=== PATIENT | female | born 1975 | race Caucasian/White ===

== ENCOUNTER 2017-04-30 19:31 | Emergency (ER) | payer MEDICAID, OTHER ==
--- NOTE | 2017-04-30 19:47 | ED Physician Documentation ---
History of Present Illness - Stated complaint Stated Complaint: L LEG PAIN - Chief complaint Chief Complaint: General - History obtained from History obtained from: Patient - History of Present Illness Timing: Other (This is a 41-year-old woman who about 18 years ago had an unexplained stroke. She says she did have a normal echocardiogram with after that. She has a strong family history for DVT with multiple female relatives having had DVTs. The last 3 weeks without recent travel or trauma she has had an occasional cramp in the left leg and since yesterday she feels like she is breathing underwater with which is worse with exertion.) Review of Systems Ten Systems: 10 systems reviewed and negative Constitutional: denies: Fever, Chills Nose: denies: Rhinorrhea / runny nose, Congestion Cardiac: reports: Pedal edema, Calf pain. denies: Chest pain / pressure, Palpitations Respiratory: reports: Dyspnea. 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, Tubal ligation - Allergies Allergies/Adverse Reactions: Allergies Allergy/AdvReac Type Severity Reaction Status Date / Time morphine Allergy Edema Verified 04/30/17 19:37 - Social History Does the pt smoke?: No Does the pt drink ETOH?: No Does the pt have substance abuse?: No - Family History Family history: reports: Other (Multiple female family members with DVT) PD ED PE NORMAL - Vitals Vital signs reviewed: Yes - General General: Alert and oriented X 3, No acute distress - HEENT HEENT: PERRL, EOMI - Neck Neck: Supple, no meningeal sign, No bony TTP - Cardiac Cardiac: RRR, No murmur - Respiratory Respiratory: No respiratory distress, Clear bilaterally - Abdomen Abdomen: Soft, Non tender - Back Back: No CVA TTP, No spinal TTP - Derm Derm: Normal color, Warm and dry - Extremities Extremities: No edema, No calf tenderness / cord - Neuro Neuro: Alert and oriented X 3, Normal speech - Psych Psych: Normal mood, Normal affect Results - Vitals Vitals: Vital Signs - 24 hr 04/30/17 04/30/17 19:34 19:56 Temperature 36.5 C Heart Rate 82 77 Respiratory 18 Rate Blood Pressure 148/89 H O2 Saturation 100 Oxygen O2 Source Room air - Labs Labs: Laboratory Tests 04/30/17 04/30/17 04/30/17 19:59 19:59 19:59 WBC 7.6 RBC 4.49 Hgb 14.6 Hct 43.8 MCV 97.5 MCH 32.6 H MCHC 33.4 RDW 12.3 Plt Count 323 MPV 7.8 L Neut # 4.3 Lymph # 2.5 [place] # 0.4 Eos # 0.3 Baso # 0.1 Absolute Nucleated RBC 0.00 Nucleated RBCs 0.0 PT 11.3 INR 1.0 Sodium 140 Potassium 4.0 Chloride 104 Carbon Dioxide 27 Anion Gap 9.0 BUN 18 Creatinine 0.9 Estimated GFR (MDRD) 68 L Glucose 151 H Calcium 9.6 Total Bilirubin 0.3 AST 18 ALT 21 Alkaline Phosphatase 71 Total Protein 7.2 Albumin 4.6 Globulin 2.6 Albumin/Globulin Ratio 1.8 Lipase 29 PD MEDICAL DECISION MAKING - ED course ED course: 41-year-old woman with strong family history of DVT presents with 3 weeks of left leg pain and now a days worth of shortness of breath, despite Normal vital signs and normal examination this history is concerning for DVT/PE, however both CT angiogram of the chest and lower extremity Doppler were negative. Departure - Departure Disposition: 01 Home, Self Care Clinical Impression: Leg pain, left Dyspnea Qualifiers: Dyspnea type: shortness of breath Qualified Code(s): R06.02 - Shortness of breath Condition: Good Record reviewed to determine appropriate education?: Yes Instructions: ED Muscle Pain Leg Cramps, ED Dyspnea Shortness of Breath Comments: Call your doctor to arrange a follow-up appointment, make the next available appointment. In the interim, return anytime if worse or if new symptoms develop. Your blood pressure was elevated today on check into the emergency department. This does not mean that you have hypertension, it is a common phenomenon to come to the emergency department and have elevated blood pressure. I recommend that she see your primary care physician within the week to have it rechecked when you are feeling better.
[2017-04-30 20:06] LABS: BASOPHILS # (AUTO) 0.1 10^3/uL (0.0-0.1); BASOPHILS % (AUTO) 0.9 %; EOSINOPHILS # (AUTO) 0.3 10^3/uL (0.0-0.7); EOSINOPHILS % (AUTO) 3.9 %; HCT - HEMATOCRIT 43.8 % (37.0-47.0); HGB - HEMOGLOBIN 14.6 g/dL (12.0-16.0); LYMPHOCYTES # (AUTO) 2.5 10^3/uL (1.5-3.5); LYMPHOCYTES % (AUTO) 32.8 %; MEAN CORPUSCULAR HEMOGLOBIN 32.6 pg (27.0-31.0); MEAN CORPUSCULAR HGB CONC 33.4 g/dL (32.0-36.0); MEAN CORPUSCULAR VOLUME 97.5 fL (81.0-99.0); MEAN PLATELET VOLUME 7.8 fL (7.9-10.8); MONOCYTES # (AUTO) 0.4 10^3/uL (0.0-1.0); MONOCYTES % (AUTO) 5.2 %; NEUTROPHILS # (AUTO) 4.3 10^3/uL (1.5-6.6); NEUTROPHILS % (AUTO) 57.2 %; RED BLOOD COUNT 4.49 10^6/uL (4.20-5.40); RED CELL DISTRIBUTION WIDTH 12.3 % (12.0-15.0); UNCORRECTED WHITE BLOOD COUNT 7.6 x10^3/uL; WHITE BLOOD COUNT 7.6 x10^3/uL (4.8-10.8)
[2017-04-30 20:19] LABS: ALBUMIN/GLOBULIN RATIO 1.8 (1.0-2.2); BILIRUBIN,TOTAL 0.3 mg/dL (0.2-1.0); CALCIUM 9.6 mg/dL (8.5-10.3); CREATININE 0.9 mg/dL (0.4-1.0); TOTAL PROTEIN 7.2 g/dL (6.7-8.2)
--- NOTE | 2017-04-30 21:02 | Ultrasound Preliminary Report ---
Exam: US Duplex Ext Veins Left IMPRESSION: Negative for deep venous thrombosis in the left lower extremity [facility] SITE ID: [id number]
--- NOTE | 2017-04-30 21:05 | Ultrasound Report ---
EXAM: LEFT LOWER EXTREMITY VENOUS ULTRASOUND EXAM DATE: 04/30/2017 08:35 PM. CLINICAL HISTORY: Dyspnea, leg pain. COMPARISON: None. TECHNIQUE: Real-time sonographic vascular imaging was performed by the door repairer bus through the lower extremity utilizing both color-flow and Doppler spectral analysis. Multiple cordage sales representative static stephen ges were saved for review. FINDINGS: Common Femoral Vein (CFV): Normal. CFV-GSV Junction: Normal. Profunda Femoral Vein (PFV): Normal. Femoral Vein (FV) Prox: Normal. Femoral Vein (FV) Mid: Normal. Femoral Vein (FV) Dist: Normal. Popliteal Vein: Normal. Posterior Tibial Veins: Normal. Peroneal Veins: Normal. Other: None. IMPRESSION: Negative for deep venous thrombosis in the left lower extremity [facility] Referring Provider Line: [phone] SITE ID: [id number]
[2017-04-30] MEDS ORDERED: IOPAMIDOL-300 100 ML VIAL IVP ONE (21:12)
[2017-04-30 21:17] LABS: PT - PROTHROMBIN TIME 11.3 secs (9.9-12.6)
--- NOTE | 2017-04-30 21:33 | CT Preliminary Report ---
Exam: CT Chest Angio (PE) IMPRESSION: Negative CT angiogram. No pulmonary embolism or aortic dissection. Clear lungs. [facility] SITE ID: [id number]
--- NOTE | 2017-04-30 21:36 | CT Report ---
EXAM: CT ANGIOGRAM CHEST EXAM DATE: 04/30/2017 09:08 PM. CLINICAL HISTORY: Dyspnea, leg pain. COMPARISON: None. TECHNIQUE: Routine helical imaging was performed through the chest in the pulmonary arterial phase. I V Contrast: 80 cc Isovue 300 IV. Reconstructions: Coronal 3-D MIP reconstructions.Sagittal and elizondo l. In accordance with CT protocol optimization, one or more of the following dose reduction techniques w ere utilized for this exam: automated exposure control, adjustment of mA and/or KV based on patient s ize, or use of iterative reconstructive technique. FINDINGS: Pulmonary Arteries: Diagnostic quality: Adequate through the segmental arteries. No evidence for acute or chronic pulmona ry emboli. Main pulmonary artery is normal in size. Lungs/Pleura: No consolidation, nodules, or edema. No effusions or pneumothorax. Mediastinum: Normal. No cardiac enlargement or adenopathy. Thoracic Aorta: No aneurysm or dissection of the thoracic aorta. Upper Abdomen: Unremarkable. Other: None. IMPRESSION: Negative CT angiogram. No pulmonary embolism or aortic dissection. Clear lungs. [facility] Referring Provider Line: [phone] SITE ID: [id number]
[2017-04-30 21:42] VITALS: BP 139/71
== END 2017-04-30 21:43 | disposition home or self-care (01) ==
LOC: ED 19:31
DX: M79.605 Pain in left leg (principal); R06.02 Shortness of breath; Z86.73 Personal history of transient ischemic attack (TIA), and cerebral infarction without residual deficits; Z84.89 Family history of other specified conditions
CPT/HCPCS: 36415; 71275; 80053; 83690; 85025; 85610; 93971; 99283; 99284; Q9967

== ENCOUNTER 2017-12-26 12:56 | Outpatient (CLI) | payer OTHER ==
--- NOTE | 2017-12-27 14:09 | Mammography Report ---
SCREENING MAMMOGRAM: 12/26/2017 CLINICAL INDICATION: A 42-year-old with family history of breast cancer, for screening. COMPARISON: 06/17/2017 TECHNIQUE: Routine CC and MLO projections were obtained of the breasts. FINDINGS: Parenchymal tissue within both breasts is heterogeneously dense, which may lower the sensitivity of mammography; however, there are no dominant masses, suspicious microcalcifications, or secondary signs of malignancy. In comparison to the previous studies, there are no significant changes. ASSESSMENT: NO MAMMOGRAPHIC EVIDENCE OF MALIGNANCY. NO SIGNIFICANT INTERVAL CHANGES. RECOMMENDATION: Screening mammography is recommended annually. BIRADS category 1 - negative. STANDARD QUALIFYING STATEMENTS: 1. This examination was reviewed with the aid of Computed-Aided Detection (CAD). 2. A negative or benign imaging report should not delay biopsy if clinically suspicious findings are present. Consider surgical consultation if warranted. More than 5% of cancers are not identified by imaging. 3. Dense breasts may obscure an underlying neoplasm. TD: 12/27/2017 14:08
== END 2017-12-26 12:57 | disposition home or self-care (01) ==
LOC: DI 12:56
PROVIDERS: ATTEND Nurse Practitioner
DX: Z12.31 Encounter for screening mammogram for malignant neoplasm of breast (principal); Z80.3 Family history of malignant neoplasm of breast
CPT/HCPCS: 77067

== ENCOUNTER 2018-01-07 12:40 | Emergency (ER) | payer OTHER ==
--- NOTE | 2018-01-07 13:52 | ED Physician Documentation ---
PD HPI ABD PAIN - Stated complaint Stated Complaint: ABD PX,DIARRHEA - Chief complaint Chief Complaint: Abd Pain - History obtained from History obtained from: Patient - History of Present Illness Timing - onset: How many months ago (1 month of waxing and waning diarrhea and lower abd cramping pain.) Timing - duration: Months (1) Timing - details: Gradual onset, Still present, Waxing and waning Quality: Cramping, Aching, Pain Location: RLQ, Suprapubic, LLQ Radiation: Lower back Improved by: No: Eating, BM Worsened by: No: Eating Associated symptoms: Nausea, Diarrhea. No: Fever, Constipation, Melena, Hematochezia, Dysuria Similar symptoms before: Has not had sx before Recently seen: Not recently seen (no recent travel, abx, unusual foods.) Review of Systems Constitutional: denies: Fever, Chills, Myalgias Nose: denies: Rhinorrhea / runny nose, Congestion Throat: denies: Sore throat Respiratory: denies: Cough GI: reports: Abdominal Pain, Nausea, Vomiting, Diarrhea. denies: Abdominal Swelling, Constipation, Hematemesis, Bloody / black stool : denies: Dysuria, Frequency Skin: denies: Rash Neurologic: reports: Generalized weakness. 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: Endometrial ablation, Tubal ligation - Present Medications Home Medications: Ambulatory Orders Medication Instructions Recorded Confirmed Acetaminophen [Tylenol] 01/07/18 Cyclosporine [Restasis] 01/07/18 Gabapentin [Neurontin] 01/07/18 HYDROcod/ACETAM 5/325 [[place] 5/325] 1 tab PO Q6H PRN #15 tablet 01/07/18 Ibuprofen 01/07/18 Metoprolol Tartrate 01/07/18 Metronidazole [Flagyl] 500 mg PO BID #14 tablet 01/07/18 Ondansetron HCl [Zofran] 4 mg PO Q6H PRN #20 tablet 01/07/18 Pantoprazole [Protonix] 01/07/18 Sulfamethox/Trimeth 800/160 1 each PO BID #14 tablet 01/07/18 [Bactrim Ds 800/160] lamoTRIgine [Lamictal] 01/07/18 traZODone [Desyrel] 01/07/18 01/07/18 - Allergies Allergies/Adverse Reactions: Allergies Allergy/AdvReac Type Severity Reaction Status Date / Time morphine Allergy Edema Verified 01/07/18 12:56 - Social History Does the pt smoke?: No Does the pt drink ETOH?: No Does the pt have substance abuse?: No - Immunizations Immunizations are current?: Yes PD ED PE NORMAL - Vitals Vital signs reviewed: Yes - General General: Alert and oriented X 3, Well developed/nourished, Other (appears uncomfortable) - HEENT HEENT: PERRL (nonicteric), Pharynx benign - Neck Neck: Supple, no meningeal sign, No adenopathy - Cardiac Cardiac: RRR, No murmur - Respiratory Respiratory: Clear bilaterally - Abdomen Abdomen: Normal bowel sounds, Soft, Non distended, No organomegaly, Other ( tender lower abd generally without guarding nor percussion tenderness. ) - Female Female : Deferred - Rectal Rectal: Deferred - Back Back: No CVA TTP - Derm Derm: Normal color, Warm and dry - Neuro Neuro: Alert and oriented X 3, No motor deficit, Normal speech Results - Vitals Vitals: Oxygen O2 Source Room air - Labs Labs: Microbiology 01/07/18 16:30 Campylobacter Antigen Assay - Final Stool Stool Culture - Preliminary NO SHIGA TOXIN 1 OR 2 DETECTED 01/07/18 16:30 Clostridium difficile (PCR) - Final Stool Laboratory Tests 01/07/18 01/07/18 01/07/18 13:45 13:45 13:45 WBC 11.4 H RBC 4.19 L Hgb 12.9 Hct 39.7 MCV 94.9 MCH 30.8 MCHC 32.4 RDW 12.8 Plt Count 346 MPV 7.9 Neut # 8.7 H Lymph # 1.7 [place] # 0.6 Eos # 0.3 Baso # 0.1 Absolute Nucleated RBC 0.01 Nucleated RBC % 0.1 ESR 15 Sodium 136 Potassium 3.3 L Chloride 103 Carbon Dioxide 25 Anion Gap 8.0 BUN 7 Creatinine 0.8 Estimated GFR (MDRD) 78 L Glucose 99 Calcium 8.9 Magnesium 1.8 Total Bilirubin 0.5 AST 12 ALT 13 Alkaline Phosphatase 66 Total Protein 6.4 L Albumin 3.6 Globulin 2.8 Albumin/Globulin Ratio 1.3 Lipase 15 L Urine Color Urine Clarity Urine pH Ur Specific [place] Urine Protein Urine Glucose (UA) Urine Ketones Urine Occult Blood Urine Nitrite Urine Bilirubin Urine Urobilinogen Ur Leukocyte Esterase Ur Microscopic Review 01/07/18 14:30 WBC RBC Hgb Hct MCV MCH MCHC RDW Plt Count MPV Neut # Lymph # [place] # Eos # Baso # Absolute Nucleated RBC Nucleated RBC % ESR Sodium Potassium Chloride Carbon Dioxide Anion Gap BUN Creatinine Estimated GFR (MDRD) Glucose Calcium Magnesium Total Bilirubin AST ALT Alkaline Phosphatase Total Protein Albumin Globulin Albumin/Globulin Ratio Lipase Urine Color YELLOW Urine Clarity CLEAR Urine pH 6.0 Ur Specific [place] 1.015 Urine Protein NEGATIVE Urine Glucose (UA) NEGATIVE Urine Ketones NEGATIVE Urine Occult Blood NEGATIVE Urine Nitrite NEGATIVE Urine Bilirubin NEGATIVE Urine Urobilinogen 0.2 (NORMAL) Ur Leukocyte Esterase NEGATIVE Ur Microscopic Review NOT INDICATED - Rads (name of study) abd CT Radiology: Prelim report reviewed (cecum and ascending colon with wall inflammation c/w focal colitis. ) PD MEDICAL DECISION MAKING - ED course Complexity details: reviewed results, re-evaluated patient, considered differential (viral GE, bacterial infection, colitis, diverticulitis would all fit for this. Prior appy. will check CBC and ESR for consideration crohns or UC. ), d/w patient Departure - Departure Disposition: 01 Home, Self Care Clinical Impression: Colitis Diarrhea Qualifiers: Diarrhea type: unspecified type Qualified Code(s): R19.7 - Diarrhea, unspecified Condition: Stable Instructions: ED Diet Vomiting Diarrhea Prescriptions: HYDROcod/ACETAM 5/325 [[place] 5/325] 1 tab PO Q6H PRN #15 tablet PRN Reason: Pain Metronidazole [Flagyl] 500 mg PO BID #14 tablet Ondansetron HCl [Zofran] 4 mg PO Q6H PRN #20 tablet PRN Reason: Nausea / Vomiting Sulfamethox/Trimeth 800/160 [Bactrim Ds 800/160] 1 each PO BID #14 tablet Comments: Your CT scan does show a local area of colitis which is more likely a bacterial infection in the site. We will treated with Bactrim and Flagyl antibiotics twice daily for a week. He can use ondansetron if needed for nausea. Drink lots of fluids. Use Tylenol or hydrocodone if needed for pain. Recheck if not improving over the next few days. Follow-up with your primary care in the next 3-5 days, call for an appointment. Discharge Date/Time: 01/07/18 17:24
[2018-01-07] MEDS ORDERED: SODIUM CHLORIDE 0.9% 1,000 ML IV ONE (14:27)
[2018-01-07] MEDS ORDERED: ONDANSETRON 4 MG/2 ML VIAL IVP STA (14:27)
[2018-01-07] MEDS ORDERED: KETOROLAC 60 MG/2 ML VIAL IVP STA (14:27)
[2018-01-07 14:38] LABS: BASOPHILS # (AUTO) 0.1 10^3/uL (0.0-0.1); BASOPHILS % (AUTO) 0.7 %; EOSINOPHILS # (AUTO) 0.3 10^3/uL (0.0-0.7); HGB - HEMOGLOBIN 12.9 g/dL (12.0-16.0); LYMPHOCYTES # (AUTO) 1.7 10^3/uL (1.5-3.5); LYMPHOCYTES % (AUTO) 14.5 %; MEAN CORPUSCULAR HEMOGLOBIN 30.8 pg (27.0-31.0); MEAN CORPUSCULAR HGB CONC 32.4 g/dL (32.0-36.0); MEAN CORPUSCULAR VOLUME 94.9 fL (81.0-99.0); MEAN PLATELET VOLUME 7.9 fL (7.9-10.8); MONOCYTES # (AUTO) 0.6 10^3/uL (0.0-1.0); MONOCYTES % (AUTO) 5.2 %; NEUTROPHILS # (AUTO) 8.7 10^3/uL (1.5-6.6); NEUTROPHILS % (AUTO) 76.6 %; PLT - PLATELET COUNT 346 10^3/uL (130-450); RED BLOOD COUNT 4.19 10^6/uL (4.20-5.40); RED CELL DISTRIBUTION WIDTH 12.8 % (12.0-15.0); WHITE BLOOD COUNT 11.4 x10^3/uL (4.8-10.8)
[2018-01-07] MEDS ORDERED: IOPAMIDOL-300 100 ML VIAL ONE (14:48)
[2018-01-07 14:49] LABS: ALBUMIN 3.6 g/dL (3.2-5.5); ALBUMIN/GLOBULIN RATIO 1.3 (1.0-2.2); BILIRUBIN,TOTAL 0.5 mg/dL (0.2-1.0); CALCIUM 8.9 mg/dL (8.5-10.3); CREATININE 0.8 mg/dL (0.4-1.0); MAGNESIUM 1.8 mg/dL (1.7-2.8); TOTAL PROTEIN 6.4 g/dL (6.7-8.2)
--- NOTE | 2018-01-07 15:42 | CT Report ---
EXAM: CT ABDOMEN AND PELVIS EXAM DATE: 01/07/2018 03:30 PM. CLINICAL HISTORY: Lower abd pain and diarrhea for few weeks. COMPARISONS: None. TECHNIQUE: Routine helical CT imaging was performed through the abdomen and pelvis. IV contrast: 100M L ISOVUE 300. Enteric contrast: No. Reconstructions: Coronal and sagittal. In accordance with CT protocol optimization, one or more of the following dose reduction techniques w ere utilized for this exam: automated exposure control, adjustment of mA and/or KV based on patient s ize, or use of iterative reconstructive technique. FINDINGS: Lung Bases: Unremarkable. Liver: Normal. No masses. Gallbladder/Bile Ducts: Unremarkable. Spleen: Normal. Pancreas: Normal. Adrenal Glands: Normal. Kidneys: Normal. No masses or hydronephrosis. Peritoneal Cavity/Bowel: There is diffuse thickening of the wall of the cecum and ascending colon. Th ere is a nonobstructive bowel gas pattern. The appendix is not seen. Pelvic Organs: There is a small volume of free fluid within the posterior cul-de-sac. There is mild l inear enhancement along the periphery of the free fluid. The uterus is normal in size. The urinary bl adder is unremarkable. The ovaries are not well seen. Vasculature: Abdominal aorta is normal in caliber. Bones: No significant abnormality. Other: None. IMPRESSION: 1. Wall thickening of the cecum and ascending colon consistent with acute colitis. 2. Small volume of mildly complex free fluid in the posterior cul-de-sac of the pelvis with mild marsha pheral rim enhancement may reflect inflammatory fluid 3. No bowel obstruction. 4. Appendix not seen. [facility] Referring Provider Line: [phone] SITE ID: [id number]
[2018-01-07 16:07] LABS: BILIRUBIN,URINE NEGATIVE (NEGATIVE); GLUCOSE, URINE (UA) NEGATIVE (NEGATIVE); KETONES,URINE (UA) NEGATIVE (NEGATIVE); LEUKOCYTE ESTERASE, URINE NEGATIVE (NEGATIVE); NITRITE,URINE NEGATIVE (NEGATIVE); OCCULT BLOOD,URINE NEGATIVE (NEGATIVE); PROTEIN,URINE NEGATIVE (NEGATIVE); UROBILINOGEN,URINE 0.2 (NORMAL) E.U./dL (NORMAL)
[2018-01-07] MEDS ORDERED: IOPAMIDOL-300 100 ML VIAL IVP ONE (16:08)
[2018-01-07 16:17] LABS: CLARITY,URINE CLEAR (CLEAR)
[2018-01-07] MEDS ORDERED: metroNIDAZOLE 250 MG TABLET PO STA (16:41)
[2018-01-07] MEDS ORDERED: SULFAMETH/TRIMETH DS 800/160 MG TABLET PO STA (16:41)
[2018-01-07 17:06] VITALS: BP 112/76
== END 2018-01-07 17:24 | disposition home or self-care (01) ==
LOC: ED 12:40
DX: K52.9 Noninfective gastroenteritis and colitis, unspecified (principal); I10 Essential (primary) hypertension
CPT/HCPCS: 36415; 74177; 80053; 81003; 83690; 83735; 85025; 85651; 87045; 87046; 87493; 96361; 96374; 96375; 99283; 99284; A9270; Q9967; 81001; 87077

== ENCOUNTER 2019-02-08 11:19 | Emergency (ER) | payer OTHER ==
[2019-02-08 11:30] VITALS: BP 109/80
[2019-02-08 11:59] LABS: BASOPHILS # (AUTO) 0.1 10^3/uL (0.0-0.1); BASOPHILS % (AUTO) 0.8 %; EOSINOPHILS # (AUTO) 0.4 10^3/uL (0.0-0.7); EOSINOPHILS % (AUTO) 4.1 %; HGB - HEMOGLOBIN 13.6 g/dL (12.0-16.0); LYMPHOCYTES # (AUTO) 1.4 10^3/uL (1.5-3.5); LYMPHOCYTES % (AUTO) 13.7 %; MEAN CORPUSCULAR HEMOGLOBIN 32.3 pg (27.0-31.0); MEAN CORPUSCULAR HGB CONC 33.3 g/dL (32.0-36.0); MEAN CORPUSCULAR VOLUME 96.9 fL (81.0-99.0); MEAN PLATELET VOLUME 7.5 fL (7.9-10.8); MONOCYTES # (AUTO) 0.6 10^3/uL (0.0-1.0); MONOCYTES % (AUTO) 5.7 %; NEUTROPHILS # (AUTO) 7.9 10^3/uL (1.5-6.6); NEUTROPHILS % (AUTO) 75.7 %; PLT - PLATELET COUNT 318 10^3/uL (130-450); RED CELL DISTRIBUTION WIDTH 12.5 % (12.0-15.0); WHITE BLOOD COUNT 10.5 x10^3/uL (4.8-10.8)
[2019-02-08 12:12] LABS: ALBUMIN 4.1 g/dL (3.2-5.5); ALBUMIN/GLOBULIN RATIO 1.3 (1.0-2.2); BILIRUBIN,TOTAL 0.6 mg/dL (0.2-1.0); CALCIUM 9.4 mg/dL (8.5-10.3); CREATININE 0.8 mg/dL (0.4-1.0); TOTAL PROTEIN 7.3 g/dL (6.7-8.2)
--- NOTE | 2019-02-08 12:53 | XRAY Report ---
Reason: cough Procedure Date: 02/08/2019 Accession Number: [id number] / [id number] Procedure: XR - Chest 2 View X-Ray CPT Code: 62687 FULL RESULT: EXAM: CHEST RADIOGRAPHY EXAM DATE: 02/08/2019 12:19 PM. CLINICAL HISTORY: Cough. COMPARISON: None. TECHNIQUE: 2 views. FINDINGS: Lungs/Pleura: No focal opacities evident. No pleural effusion. No pneumothorax. Normal volumes. Mediastinum: Heart and mediastinal contours are unremarkable. Other: None. IMPRESSION: Normal 2-view chest radiography. [facility]
[2019-02-08] MEDS ORDERED: IPRATROPIUM/ALBUTEROL 3 ML NEB INH STA (13:39)
[2019-02-08] MEDS ORDERED: DEXAMETHASONE 10 MG/ML VIAL PO STA (13:39)
[2019-02-08] MEDS ORDERED: CHERRY SYRUP 10 ML UDC PO ONE (13:39)
--- NOTE | 2019-02-08 13:40 | ED Physician Documentation ---
PD HPI URI - Stated complaint Stated Complaint: SOA/DIZZY - Chief complaint Chief Complaint: Resp - History obtained from History obtained from: Patient - History of Present Illness Timing - onset: How many days ago (5) Timing duration: Days (5) Timing details: Gradual onset, Still present Associated symptoms: Ear pain, Nasal congestion, Rhinorrhea, Productive cough, Dyspnea Contributing factors: Sick contact, Travel Improves by: Rest, Medication Worsened by: Activity Similar symptoms before: Diagnosis (bronchitis with asthma) Recently seen: Not recently seen - Additional information Additional information: 43-year-old female has developed cough congestion and shortness of breath over the past 5 days. She is recently returned from [facility] she is producing yellow and green phlegm from the cough and she has had the use of her inhaler multiple times without improvement. She has had to be on prednisone last year about this time and has had to be on prednisone about twice per year with her asthma. Review of Systems Constitutional: denies: Fever Eyes: denies: Decreased vision Ears: denies: Ear pain Nose: reports: Rhinorrhea / runny nose, Congestion Throat: reports: Sore throat Cardiac: reports: Chest pain / pressure. 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: Endometrial ablation, Tubal ligation - Present Medications Home Medications: Ambulatory Orders Medication Instructions Recorded Confirmed Acetaminophen [Tylenol] 01/07/18 Cyclosporine [Restasis] 01/07/18 Gabapentin [Neurontin] 01/07/18 HYDROcod/ACETAM 5/325 [[place] 5/325] 1 tab PO Q6H PRN #15 tablet 01/07/18 Ibuprofen 01/07/18 Metoprolol Tartrate 01/07/18 Metronidazole [Flagyl] 500 mg PO BID #14 tablet 01/07/18 Ondansetron HCl [Zofran] 4 mg PO Q6H PRN #20 tablet 01/07/18 Pantoprazole [Protonix] 01/07/18 Sulfamethox/Trimeth 800/160 1 each PO BID #14 tablet 01/07/18 [Bactrim Ds 800/160] lamoTRIgine [Lamictal] 01/07/18 traZODone [Desyrel] 01/07/18 01/07/18 Azithromycin [Zithromax] 250 mg PO DAILY #6 tablet 02/08/19 Benzonatate [Tessalon Perle] 100 - 200 mg PO TID PRN #30 capsule 02/08/19 predniSONE [Deltasone] 10 mg PO ONCE #26 tablet 02/08/19 - Allergies Allergies/Adverse Reactions: Allergies Allergy/AdvReac Type Severity Reaction Status Date / Time morphine Allergy Edema Verified 01/07/18 12:56 Sulfa (Sulfonamide Allergy Rash Verified 02/08/19 11:29 Antibiotics) - Social History Does the pt smoke?: No Smoking Status: Never smoker Does the pt drink ETOH?: No Does the pt have substance abuse?: No - Immunizations Immunizations are current?: Yes - POLST Patient has POLST: No PD ED PE NORMAL - Vitals Vital signs reviewed: Yes (normal ) - General General: Alert and oriented X 3, No acute distress, Well developed/nourished - HEENT HEENT: Atraumatic, PERRL, EOMI, Ears normal, Other (dry mucous membranes ) - Neck Neck: Supple, no meningeal sign, No bony TTP - Cardiac Cardiac: RRR, No murmur - Respiratory Respiratory: No respiratory distress, Other (diminished breath sounds bilat) - Abdomen Abdomen: Soft, Non tender - Back Back: No CVA TTP, No spinal TTP - Derm Derm: Normal color, Warm and dry, No rash - Extremities Extremities: No deformity, No edema - Neuro Neuro: Alert and oriented X 3, feed in worker 2-12 intact, No motor deficit, No sensory deficit, Normal speech Eye Opening: Spontaneous Motor: Obeys Commands Verbal: Oriented GCS Score: 15 - Psych Psych: Normal mood, Normal affect Results - Vitals Vitals: Vital Signs - 24 hr 02/08/19 02/08/19 02/08/19 11:25 13:42 13:51 Temperature 36.7 C Heart Rate 88 73 76 Respiratory 16 16 16 Rate Blood Pressure 109/80 O2 Saturation 92 99 Oxygen O2 Source Room air - EKG (time done) 1154 Rate: Rate (enter#) (72) Rhythm: NSR QRS: LVH Compare to prior EKG: Old EKG unavailable Computer interpretation: Agree with computer - Labs Labs: Laboratory Tests 02/08/19 02/08/19 02/08/19 11:55 11:55 11:55 WBC 10.5 RBC 4.20 Hgb 13.6 Hct 40.7 MCV 96.9 MCH 32.3 H MCHC 33.3 RDW 12.5 Plt Count 318 MPV 7.5 L Neut # (Auto) 7.9 H Lymph # (Auto) 1.4 L [place] # (Auto) 0.6 Eos # (Auto) 0.4 Baso # (Auto) 0.1 Absolute Nucleated RBC 0.01 Nucleated RBC % 0.1 Sodium 135 Potassium 4.7 Chloride 103 Carbon Dioxide 22 Anion Gap 10.0 BUN 11 Creatinine 0.8 Estimated GFR (MDRD) 78 L Glucose 101 H Calcium 9.4 Total Bilirubin 0.6 AST 12 ALT 15 Alkaline Phosphatase 77 Troponin I < 0.04 Total Protein 7.3 Albumin 4.1 Globulin 3.2 Albumin/Globulin Ratio 1.3 Lipase 29 - Rads (name of study) chest Radiology: Prelim report reviewed (Impression: Normal two-view chest radiography.), EMP read indepedently, See rad report PD MEDICAL DECISION MAKING - ED course Complexity details: reviewed old records, reviewed results, re-evaluated patient, considered differential, d/w patient ED course: 43-year-old female with a history of asthma has developed cough productive of yellow and green phlegm she does not have otitis on examination and she does not have pneumonia. She is administered dexamethasone 10 mg orally and a DuoNeb treatment will place her on a course of prednisone and azithromycin. Departure - Departure Disposition: 01 Home, Self Care Clinical Impression: Bronchitis with asthma, acute Condition: Stable Instructions: ED Bronchitis Asthmatic Follow-Up: PRESLEY DUNCAN MD [Primary Care Provider] - Prescriptions: Azithromycin [Zithromax] 250 mg PO DAILY #6 tablet Benzonatate [Tessalon Perle] 100 - 200 mg PO TID PRN #30 capsule PRN Reason: Cough predniSONE [Deltasone] 10 mg PO ONCE #26 tablet
== END 2019-02-08 14:11 | disposition home or self-care (01) ==
LOC: ED 11:19
DX: J20.9 Acute bronchitis, unspecified (principal); I10 Essential (primary) hypertension
CPT/HCPCS: 36415; 71046; 80053; 83690; 84484; 85025; 93005; 94640; 99283; A9270

== ENCOUNTER 2019-03-31 07:46 | Outpatient (CLI) | payer OTHER ==
--- NOTE | 2019-03-31 09:05 | MRI Report ---
Reason: DIZZINESS, HAND NUMBNESS Procedure Date: 03/31/2019 Accession Number: [id number] / [id number] Procedure: MRI - Cervical Spine W/O CPT Code: FULL RESULT: EXAM: MRI CERVICAL SPINE WITHOUT CONTRAST EXAM DATE: 03/31/2019 08:40 AM. CLINICAL HISTORY: 43-year-old woman with neck pain, headaches, dizziness, and hand numbness. COMPARISONS: None. TECHNIQUE: Multiplanar, multisequence T1-weighted and fluid-sensitive sequences of the cervical spine without contrast. Other: None. FINDINGS: Neurologic Structures: Cervical spinal cord is normal in caliber without definite signal abnormality. Visualized contents of the posterior fossa are unremarkable. Alignment: No scoliosis or spondylolisthesis. Bone Marrow: No gross fractures or bone lesions. No marrow edema. Interspace Levels/Facets: C2-C3: Unremarkable. C3-C4: Small broad-based disk bulge results in minimal narrowing of the central canal. No significant narrowing of the neural foramina bilaterally. C4-C5: Unremarkable. C5-C6: Posterior disk osteophyte complex results in mild to moderate narrowing of the central canal. Uncovertebral joint hypertrophy results in minimal narrowing of the neural foramina bilaterally. C6-C7: There is mild disk height loss. Small posterior disk osteophyte complex results in mild narrowing of the central canal. Uncovertebral joint hypertrophy results in minimal narrowing of the neural foramina bilaterally. C7-T1: Unremarkable. Musculature: Normal. No edema or fatty atrophy. Other: The paravertebral and prevertebral soft tissues are normal. IMPRESSION: 1. Degenerative changes result in the following: - C5-C6: Mild to moderate narrowing of the central canal. - C6-C7: Mild narrowing of the central canal. RADIA
--- NOTE | 2019-03-31 09:53 | MRI Report ---
Reason: DIZZINESS, HAND NUMBNESS Procedure Date: 03/31/2019 Accession Number: [id number] / [id number] Procedure: MRI - Brain W/O CPT Code: FULL RESULT: EXAM: MRI BRAIN WITHOUT CONTRAST EXAM DATE: 03/31/2019 09:07 AM. CLINICAL HISTORY: Dizziness, hand numbness and headaches. COMPARISON: None. TECHNIQUE: Multiplanar, multisequence T1-weighted and fluid-sensitive MR sequences of the brain were performed. Sequences optimized for routine evaluation. Other: None. IV Contrast: None. FINDINGS: Brain Volume: Normal for age. Parenchyma/Dura: No mass, acute infarct or hemorrhage. No white matter lesions identified. Ventricles/Cisterns: No hydrocephalus. No abnormal extra-axial fluid collection or hemorrhage. Orbits: Symmetric and unremarkable. Sella Turcica: The pituitary gland, cavernous sinuses, suprasellar cistern and optic chiasm are unremarkable. IAC: Symmetric and unremarkable. Vasculature: Normal signal flow void is seen in the major arterial structures at the skull base. Sinuses: No acute appearing sinus disease. Bones: No focal pathologic appearing marrow signal changes. Other: None. IMPRESSION: 1. Normal brain MRI. RADIA
== END 2019-03-31 07:47 | disposition home or self-care (01) ==
LOC: DI 07:46
PROVIDERS: ATTEND Psychiatry & Neurology Neurology
DX: M48.02 Spinal stenosis, cervical region (principal); R42 Dizziness and giddiness; R51 Headache; R20.0 Anesthesia of skin
CPT/HCPCS: 70551; 72141

== ENCOUNTER 2019-05-19 16:41 | Outpatient (CLI) | payer OTHER ==
--- NOTE | 2019-05-20 09:04 | Mammography Report ---
Reason: SCREENING MAMMO Procedure Date: 05/19/2019 Accession Number: [id number] / [id number] Procedure: ANCA - Screening Mammo w/Beto CPT Code: FULL RESULT: EXAM: Screening Mammo w/Beto DATE: 05/19/2019 5:07 PM CLINICAL HISTORY: Routine screening TECHNIQUE: (B) - Bilateral CC and MLO views were obtained. COMPARISON: 12/26/2017, 06/21/2016 PARENCHYMAL PATTERN: (VD) - The breasts demonstrate extremely dense parenchyma bilaterally, limiting the sensitivity of mammography. FINDINGS: No significant interval change. There are no suspicious masses, calcifications, or areas of distortion. IMPRESSION: Negative examination. BI-RADS category 1. RECOMMENDATION: (ANNUAL) - Recommend routine annual screening mammography. BI-RADS CATEGORY: (1) - Negative. STANDARD QUALIFYING STATEMENTS: 1. This examination was not reviewed with the aid of Computer-Aided Detection (CAD). 2. A negative or benign imaging report should not preclude biopsy if clinically suspicious findings are present. 3. Dense breasts may obscure an underlying neoplasm. 4. This examination was reviewed with the aid of 3D breast imaging (tomosynthesis).
== END 2019-05-19 16:42 | disposition home or self-care (01) ==
LOC: DI 16:41
PROVIDERS: ATTEND Nurse Practitioner
DX: Z12.31 Encounter for screening mammogram for malignant neoplasm of breast (principal)
CPT/HCPCS: 77063; 77067

== ENCOUNTER 2020-03-19 12:41 | Emergency (ER) | payer OTHER ==
--- NOTE | 2020-03-19 13:05 | ED Physician Documentation ---
PD HPI URI - Stated complaint Stated Complaint: poss C+SOB/COUGH - Chief complaint Chief Complaint: Resp - History obtained from History obtained from: Patient (44-year-old woman with history of mild asthma return from [place] yesterday where she was staying with her sister who subsequently has tested positive for coronavirus. Starting yesterday she has had chills, runny nose, nonproductive cough, and mild shortness of breath. No fevers. No leg/calf swell) Review of Systems Constitutional: reports: Chills. denies: Fever Nose: reports: Rhinorrhea / runny nose Cardiac: denies: Chest pain / pressure Respiratory: reports: Dyspnea, Cough. 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 : None HEENT: None Psych: None Musculoskeletal: Chronic back pain Derm: None - Past Surgical History Past Surgical History: Yes General: Appendectomy, Other /ELECTRICAL AND RADIO MOCK UP MECHANIC: Endometrial ablation, Tubal ligation - Present Medications Home Medications: Ambulatory Orders Medication Instructions Recorded Confirmed Acetaminophen [Tylenol] 01/07/18 Cyclosporine [Restasis] 01/07/18 Gabapentin [Neurontin] 01/07/18 HYDROcod/ACETAM 5/325 [[place] 5/325] 1 tab PO Q6H PRN #15 tablet 01/07/18 Ibuprofen 01/07/18 Metoprolol Tartrate 01/07/18 Ondansetron HCl [Zofran] 4 mg PO Q6H PRN #20 tablet 01/07/18 Pantoprazole [Protonix] 01/07/18 Sulfamethox/Trimeth 800/160 1 each PO BID #14 tablet 01/07/18 [Bactrim Ds 800/160] lamoTRIgine [Lamictal] 01/07/18 metroNIDAZOLE [Flagyl] 500 mg PO BID #14 tablet 01/07/18 traZODone [Desyrel] 01/07/18 01/07/18 Azithromycin [Zithromax] 250 mg PO DAILY #6 tablet 02/08/19 Benzonatate [Tessalon Perle] 100 - 200 mg PO TID PRN #30 capsule 02/08/19 predniSONE [Deltasone] 10 mg PO ONCE #26 tablet 02/08/19 - Allergies Allergies/Adverse Reactions: Allergies Allergy/AdvReac Type Severity Reaction Status Date / Time morphine Allergy Edema Verified 03/19/20 12:49 Sulfa (Sulfonamide Allergy Rash Verified 03/19/20 12:49 Antibiotics) - Social History Does the pt smoke?: No Smoking Status: Never smoker Does the pt drink ETOH?: No Does the pt have substance abuse?: No - Immunizations Immunizations are current?: Yes - POLST Patient has POLST: No PD ED PE NORMAL - Vitals Vital signs reviewed: Yes - General General: Alert and oriented X 3, No acute distress - Cardiac Cardiac: RRR, No murmur - Respiratory Respiratory: No respiratory distress, Clear bilaterally - Extremities Extremities: No edema, No calf tenderness / cord - Neuro Neuro: Alert and oriented X 3, Normal speech Results - Vitals Vitals: Vital Signs - 24 hr 03/19/20 03/19/20 12:49 13:24 Temperature 36.9 C Heart Rate 74 69 Respiratory 18 20 Rate Blood Pressure 147/83 H O2 Saturation 99 100 Oxygen O2 Source Room air - Rads (name of study) 1v chest Radiology: EMP read contemporaneously (normal) PD MEDICAL DECISION MAKING - ED course ED course: 44-year-old woman with shortness of breath and cough after exposure to coronavirus. She appears well with unremarkable vital signs. Although she has asthma she is not wheezing. X-ray is normal. PE considered given recent travel but nothing in the history or physical to suggest that. Departure - Departure Disposition: 01 Home, Self Care Clinical Impression: Viral syndrome Condition: Good Record reviewed to determine appropriate education?: Yes Instructions: ED Viral Syndrome Comments: Your x-ray is normal, there is no pneumonia. Coronavirus testing is pending, we will call you if positive, That said, given that you were exposed to coronavirus, you need to follow CDC quarantine guidelines available at: https://www.cdc.gov/coronavirus/2019-ncov/rj-hyt-zob-sick/quarantine.html Return if any of your symptoms, especially the shortness of breath worsens.
--- NOTE | 2020-03-19 13:59 | XRAY Report ---
PROCEDURE: Chest 1 View X-Ray INDICATIONS: cough TECHNIQUE: One view of the chest was acquired. COMPARISON: 02/08/2019 FINDINGS: Surgical changes and devices: None. Lungs and pleura: No pleural effusions or pneumothorax. Lungs are clear. Mediastinum: Mediastinal contours appear normal. Heart size is normal. Bones and chest wall: No suspicious bony lesions. Overlying soft tissues appear unremarkable. IMPRESSION: Portable chest within normal limits for age. Reviewed by: Byron Mendez MD on 03/19/2020 12:58 PM AKDT Approved by: Byron Mendez MD on 03/19/2020 12:58 PM AKDT Station ID: [id number]
[2020-03-19 14:09] VITALS: BP 136/97
== END 2020-03-19 14:21 | disposition home or self-care (01) ==
LOC: ED 12:41
DX: B34.9 Viral infection, unspecified (principal); I10 Essential (primary) hypertension; J45.909 Unspecified asthma, uncomplicated; Z20.828 Contact with and (suspected) exposure to other viral communicable diseases
CPT/HCPCS: 71045; 99284

== ENCOUNTER 2020-03-28 13:10 | Outpatient (CLI) | payer OTHER | END 2020-03-28 13:11 | disposition home or self-care (01) | LOC: COV 13:10 | PROVIDERS: ATTEND Family Medicine | DX: R50.9 Fever, unspecified (principal); R05 Cough; R06.02 Shortness of breath; R53.83 Other fatigue; J02.9 Acute pharyngitis, unspecified; R19.7 Diarrhea, unspecified; R43.9 Unspecified disturbances of smell and taste; R09.81 Nasal congestion; R11.2 Nausea with vomiting, unspecified ==

== ENCOUNTER 2020-06-23 15:31 | Emergency (ER) | payer OTHER ==
[2020-06-23 15:56] LABS: BASOPHILS # (AUTO) 0.1 10^3/uL (0.0-0.1); BASOPHILS % (AUTO) 1.1 %; EOSINOPHILS # (AUTO) 0.3 10^3/uL (0.0-0.7); EOSINOPHILS % (AUTO) 3.7 %; HGB - HEMOGLOBIN 15.8 g/dL (12.0-16.0); LYMPHOCYTES # (AUTO) 2.4 10^3/uL (1.5-3.5); LYMPHOCYTES % (AUTO) 31.3 %; MEAN CORPUSCULAR HGB CONC 32.2 g/dL (32.0-36.0); MEAN CORPUSCULAR VOLUME 96.1 fL (81.0-99.0); MEAN PLATELET VOLUME 8.8 fL (7.9-10.8); MONOCYTES # (AUTO) 0.4 10^3/uL (0.0-1.0); MONOCYTES % (AUTO) 5.8 %; NEUTROPHILS # (AUTO) 4.4 10^3/uL (1.5-6.6); NEUTROPHILS % (AUTO) 57.6 %; PLT - PLATELET COUNT 380 10^3/uL (130-450); RED CELL DISTRIBUTION WIDTH 11.5 % (12.0-15.0); WHITE BLOOD COUNT 7.6 x10^3/uL (4.8-10.8)
--- NOTE | 2020-06-23 16:07 | XRAY Report ---
PROCEDURE: Chest 1 View X-Ray INDICATIONS: Chest Pain TECHNIQUE: One view of the chest was acquired. COMPARISON: 03/19/2020 FINDINGS: Surgical changes and devices: None. Lungs and pleura: No pleural effusions or pneumothorax. Lungs are clear. Mediastinum: Mediastinal contours appear normal. Heart size is normal. Bones and chest wall: No suspicious bony lesions. Overlying soft tissues appear unremarkable. IMPRESSION: Chest without acute cardiopulmonary abnormalities. Reviewed by: Terry Bunch MD on 06/23/2020 4:06 PM PDT Approved by: Terry Bunch MD on 06/23/2020 4:06 PM PDT Station ID: [id number]
[2020-06-23 16:09] LABS: ALBUMIN 5.3 g/dL (3.2-5.5); ALBUMIN/GLOBULIN RATIO 1.6 (1.0-2.2); BILIRUBIN,TOTAL 0.7 mg/dL (0.2-1.0); CALCIUM 10.3 mg/dL (8.5-10.3); CREATININE 0.9 mg/dL (0.4-1.0); TOTAL PROTEIN 8.7 g/dL (6.7-8.2)
--- NOTE | 2020-06-23 16:14 | ED Physician Documentation ---
History of Present Illness - Stated complaint Stated Complaint: SOA/CP - Chief complaint Chief Complaint: Cardiac - History obtained from History obtained from: Patient - Additonal information Additional information: 45-year-old female presents the emergency department with 5 days of chest pain shortness of breath. She does have a history of asthma but reports that this feels different. She has used her nebulizer at home without relief. She did go to an urgent care in [facility] on Saturday For dry cough, congestion, sore throat and had a normal chest x-ray. She was tested for COVID-19 and the result was negative. She reports to me that she was told she had a viral upper respiratory syndrome and was told to use Mucinex at home and get rest. She returns today because she feels like she cannot catch a full breath. She reports her chest pain is constant substernal. She denies pleuritic pain. She has had no fevers. She reports a dry cough. She does not have dyspnea on exertion. She has no history of blood clots or cancer. She has no unilateral leg swelling or calf pain. She has no history of hormone use. She was not recently immobilized. History of hypertension and takes metoprolol. She is not a smoker. Review of Systems Constitutional: denies: Fever, Chills Nose: denies: Rhinorrhea / runny nose, Congestion Throat: denies: Dental pain / toothache, Oral lesions / sores Cardiac: reports: Chest pain / pressure. denies: Palpitations, Pedal edema, Calf pain Respiratory: reports: Dyspnea, Cough. 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 : None HEENT: None Psych: None Musculoskeletal: Chronic back pain Derm: None - Past Surgical History Past Surgical History: Yes General: Appendectomy, Other /NETWORK SUPPORT ANALYST: Endometrial ablation, Tubal ligation - Present Medications Home Medications: Ambulatory Orders Medication Instructions Recorded Confirmed Acetaminophen [Tylenol] 01/07/18 Cyclosporine [Restasis] 01/07/18 Gabapentin [Neurontin] 01/07/18 HYDROcod/ACETAM 5/325 [[place] 5/325] 1 tab PO Q6H PRN #15 tablet 01/07/18 Ibuprofen 01/07/18 Metoprolol Tartrate 01/07/18 Ondansetron HCl [Zofran] 4 mg PO Q6H PRN #20 tablet 01/07/18 Pantoprazole [Protonix] 01/07/18 Sulfamethox/Trimeth 800/160 1 each PO BID #14 tablet 01/07/18 [Bactrim Ds 800/160] lamoTRIgine [Lamictal] 01/07/18 metroNIDAZOLE [Flagyl] 500 mg PO BID #14 tablet 01/07/18 traZODone [Desyrel] 01/07/18 01/07/18 Azithromycin [Zithromax] 250 mg PO DAILY #6 tablet 02/08/19 Benzonatate [Tessalon Perle] 100 - 200 mg PO TID PRN #30 capsule 02/08/19 predniSONE [Deltasone] 10 mg PO ONCE #26 tablet 02/08/19 - Allergies Allergies/Adverse Reactions: Allergies Allergy/AdvReac Type Severity Reaction Status Date / Time morphine Allergy Edema Verified 06/23/20 15:39 Sulfa (Sulfonamide Allergy Rash Verified 06/23/20 15:39 Antibiotics) - Social History Does the pt smoke?: No Smoking Status: Never smoker Does the pt drink ETOH?: No Does the pt have substance abuse?: No - Immunizations Immunizations are current?: Yes - POLST Patient has POLST: No PD ED PE EXPANDED - General General: Alert, No acute distress, Anxious - HEENT HEENT: Atraumatic, Pharyngeal erythema (Minor posterior erythema edema without tonsillar exudate uvular deviation or swelling) - Neck Neck: Supple w/out meningeal sx. No: Adenopathy - Cardiac Cardiac: Regular Rate, Regular Rhythm, Radial strong equal, Pedal strong equal, Cap refill < 2 sec. No: Murmur Present - Respiratory Respiratory: Clear to ausultation greg. No: Distress, Labored, Accessory mm use, Retractions, Wheezing, Rhonchi, Decreased breath sounds - Abdomen Abdomen: Normal Bowel sounds. No: Tender to palpation - Derm Derm: Normal color. No: Rash - Extremities Extremities: Normal, Pedal Pulses Present, Other (No calf pain tenderness elicited bilaterally.). No: Pedal edema bilateral - Neuro Neuro: Alert and Oriented X 3, CNII-XII intact. No: Cerebellar nl, Normal gait, Normal finger nose - GCS Eye Opening: Spontaneous Motor: Obeys Commands Verbal: Oriented Total: 15 - Psych Psych: Anxious Results - Vitals Vitals: Vital Signs - 24 hr 06/23/20 06/23/20 15:34 16:05 Temperature 36.9 C Heart Rate 74 66 Respiratory 16 18 Rate Blood Pressure 145/89 H 120/82 H O2 Saturation 99 100 Oxygen O2 Source Room air - EKG (time done) 1530 Rate: Rate (enter#) (75) Rhythm: NSR [place]: Normal Intervals: Normal RI QRS: Normal Ischemia: Normal ST segments Compare to prior EKG: Unchanged from prior EKG Computer interpretation: Agree with computer - Labs Labs: Laboratory Tests 06/23/20 06/23/20 06/23/20 15:51 15:51 15:51 WBC 7.6 RBC 5.10 Hgb 15.8 Hct 49.0 H MCV 96.1 MCH 31.0 MCHC 32.2 RDW 11.5 L Plt Count 380 MPV 8.8 Neut # (Auto) 4.4 Lymph # (Auto) 2.4 Boyle # (Auto) 0.4 Eos # (Auto) 0.3 Baso # (Auto) 0.1 Absolute Nucleated RBC 0.00 Nucleated RBC % 0.0 D-Dimer 210.6 Sodium 136 Potassium 3.9 Chloride 98 L Carbon Dioxide 27 Anion Gap 11.0 BUN 12 Creatinine 0.9 Estimated GFR (MDRD) 67 L Glucose 126 H Calcium 10.3 Total Bilirubin 0.7 AST 41 ALT 72 H Alkaline Phosphatase 92 Troponin I High Sens Total Protein 8.7 H Albumin 5.3 Globulin 3.3 Albumin/Globulin Ratio 1.6 Lipase 32 06/23/20 15:51 WBC RBC Hgb Hct MCV MCH MCHC RDW Plt Count MPV Neut # (Auto) Lymph # (Auto) Boyle # (Auto) Eos # (Auto) Baso # (Auto) Absolute Nucleated RBC Nucleated RBC % D-Dimer Sodium Potassium Chloride Carbon Dioxide Anion Gap BUN Creatinine Estimated GFR (MDRD) Glucose Calcium Total Bilirubin AST ALT Alkaline Phosphatase Troponin I High Sens 2.5 Total Protein Albumin Globulin Albumin/Globulin Ratio Lipase - Rads (name of study) cxr Radiology: Final report received (No acute cardiopulmonary process) PD MEDICAL DECISION MAKING - ED course Complexity details: reviewed old records, reviewed results, re-evaluated patient, considered differential, d/w patient ED course: 45-year-old male presents to the emergency department with 5 to 7 days of chest pain and what she reports as difficulty catching a full breath. She was seen recently in urgent care and tested negative for COVID-19. She was however told that she likely had a viral upper respiratory infection. - She has an unremarkable EKG without ischemic findings. High-sensitivity troponin is negative. Suspicion for ACS is low. - Chest x-ray is unremarkable. She has no hypoxia or tachypnea. There are no fevers. No findings to suggest bronchitis, asthma exacerbation or pneumonia. - Patient is both PERC and Wells criteria negative. Her D-dimer was not elevated today. I did discuss at length with the patient that though the suspicion for a pulmonary embolus was quite low could not be entirely ruled out on the basis of the exam and D-dimer. I did offer her a CT angiogram to formally rule out a pulmonary embolus however the patient declined. - At this time she appears very well and wishes to be discharged home. She was notified that if her symptoms should worsen or she desires to have the CT angiogram completed she may return to the emergency department at any time Departure - Departure Disposition: 01 Home, Self Care Clinical Impression: Dyspnea Qualifiers: Dyspnea type: shortness of breath Qualified Code(s): R06.02 - Shortness of breath; R06.00 - Dyspnea, unspecified; R06.01 - Orthopnea Condition: Stable Record reviewed to determine appropriate education?: Yes Instructions: ED Dyspnea Shortness of Breath Comments: Your chest x-ray today is normal. Your labs including a troponin and D-dimer ar e also normal. Your EKG does not show any signs concerning for a heart attack. It is possible that you are continuing to vyas with a virus that is causing some mild shortness of breath. You were offered a CAT scan of your chest to formally rule out a pulmonary embolus however that was declined today. If at any point you feel that your symptoms are worsening, you develop fevers, have bloody sputum, have any fainting episodes you may return to the emergency department for a second evaluation
[2020-06-23 16:48] VITALS: BP 116/74
== END 2020-06-23 17:05 | disposition home or self-care (01) ==
LOC: ED 15:31
DX: R06.02 Shortness of breath (principal); R06.01 Orthopnea; I10 Essential (primary) hypertension
CPT/HCPCS: 36415; 71045; 80053; 83690; 84484; 85025; 85379; 93005; 99284

== ENCOUNTER 2020-12-01 15:38 | Outpatient (CLI) | payer OTHER ==
--- NOTE | 2020-12-02 10:50 | Mammography Report ---
BILATERAL DIGITAL SCREENING MAMMOGRAM 3D/2D: 12/01/2020 CLINICAL: Family history of breast cancer. Routine screening. Comparison is made to exams dated: 05/19/2019 mammogram, 12/26/2017 mammogram, and 06/21/2016 mammogra m - [facility]. The tissue of both breasts is heterogeneously dense. This may lowe r the sensitivity of mammography. No significant masses, calcifications, or other findings are seen in either breast. There has been no significant interval change. IMPRESSION: NEGATIVE There is no mammographic evidence of malignancy. A 1 year screening mammogram is recommended. This exam was interpreted at Station ID: [id number]. NOTE: For mammograms, a report in lay terms will be sent to the patient. Approximately 15% of breast malignancies will not be visualized mammographically. In the management of a palpable breast mass, a negative mammogram must not discourage biopsy of a clinically suspicious lesion. Electronically Signed By: Erwin Verdugo M.D., jr/emmarad:12/01/2020 16:21:24 ACR BI-RADS Category 1: Negative 3341F PARENCHYMAL PATTERN: (D) - The breast(s) demonstrate(s) heterogeneously dense fibroglandular parleti ma. BI-RADS CATEGORY: (1) - 1 RECOMMENDATION: (ANNUAL) - Recommend routine annual screening mammography. 20211202 1 year screening LATERALITY: (B)
== END 2020-12-01 15:39 | disposition home or self-care (01) ==
LOC: DI.N 15:38
PROVIDERS: ATTEND Nurse Practitioner
DX: Z12.31 Encounter for screening mammogram for malignant neoplasm of breast (principal); Z80.3 Family history of malignant neoplasm of breast

== ENCOUNTER 2021-02-10 11:09 | Emergency (ER) | payer OTHER ==
--- OUTSIDE RECORDS SUMMARY | 2021-02-10 11:13 | EXTERNAL MEDICAL SUMMARY RPT | Continuity of Care Document ---
:1975 Demographics Phone Unavailable Preferred Language Albanian Marital Status Unknown Taoist Affiliation Unknown Race Unknown Ethnic Group Unknown Author Organization [place] Address [address] [phone] Phone Care Team Providers Name Role Phone Bettes Unavailable Unavailable Jose Enrique Unavailable Unavailable Jose Enrique Unavailable Unavailable Allergies Encounters Medications date description facility [id number] gabapentin 300 MG Oral Capsule [facility] [id number] Acetaminophen 325 MG / Hydrocodone Arcelia rtrate 5 MG Oral [facility] Tablet [id number] Ketorolac Tromethamine 10 MG Oral Table t [facility] [id number] Acetaminophen 325 MG / Hydrocodone Arcelia rtrate 5 MG Oral [facility] Tablet 25595823 Ketorolac Tromethamine 10 MG Oral [facility] Problems date description facility [id number] Pain in right hip [facility] [id number] Persons encountering health services in other specified [facility] circ [id number] Encounter for screening mammogram for m [facility] neoplasm of [id number] Encounter for screening for other suspe cted endocrine [facility] disord [id number] Encounter for screening for other metab olic disorders [facility] [id number] Encounter for screening for lipoid diso rders [facility] Procedures date description facility [id number] [facility] [id number] [facility] [id number] [facility] Results Vital Signs date measurement value source [id number] respiration_rate 16 /min [id number] weight_standard 68.04 lb [id number] weight_metric 30.86 kg 90513042 respiration_rate 16 /min 21055123 height_standard 65 in [id number] height_metric 165.1 cm 64467458 heart_rate 57 /min 64703224 BP_systolic 111 mm[Hg] 66579910 BP_diastolic 60 mm[Hg] 11216782 BMI 25.0 kg/m2 48358168 weight_standard 69 lb 23104979 weight_metric 31.3 kg 28161803 temperature_standard 97.2 F 20201220 temperature_metric 36.22 C 20201220 height_standard 65 in 64970809 height_metric 165.1 cm 43319295 heart_rate 56 /min 36822133 BP_systolic 118 mm[Hg] 77020848 BP_diastolic 62 mm[Hg] 54903215 BMI 25.3 kg/m2
[2021-02-10 11:34] LABS: BASOPHILS # (AUTO) 0.1 10^3/uL (0.0-0.1); BASOPHILS % (AUTO) 0.8 %; EOSINOPHILS # (AUTO) 0.3 10^3/uL (0.0-0.7); EOSINOPHILS % (AUTO) 4.4 %; HCT - HEMATOCRIT 40.4 % (37.0-47.0); HGB - HEMOGLOBIN 13.2 g/dL (12.0-16.0); MEAN CORPUSCULAR HEMOGLOBIN 32.3 pg (27.0-31.0); MEAN CORPUSCULAR HGB CONC 32.7 g/dL (32.0-36.0); MEAN CORPUSCULAR VOLUME 98.8 fL (81.0-99.0); MEAN PLATELET VOLUME 9.1 fL (7.9-10.8); MONOCYTES # (AUTO) 0.4 10^3/uL (0.0-1.0); NEUTROPHILS # (AUTO) 3.4 10^3/uL (1.5-6.6); NEUTROPHILS % (AUTO) 55.5 %; PLT - PLATELET COUNT 334 10^3/uL (130-450); RED BLOOD COUNT 4.09 10^6/uL (4.20-5.40); RED CELL DISTRIBUTION WIDTH 11.7 % (12.0-15.0); WHITE BLOOD COUNT 6.1 x10^3/uL (4.8-10.8)
[2021-02-10] MEDS ORDERED: ONDANSETRON 4 MG/2 ML VIAL IVP STA (11:38)
[2021-02-10] MEDS ORDERED: SODIUM CHLORIDE 0.9% 1,000 ML IV STA (11:38)
[2021-02-10] MEDS ORDERED: fentaNYL 100 MCG/2 ML VIAL IVP STA (11:39)
--- OUTSIDE RECORDS SUMMARY | 2021-02-10 11:40 | EXTERNAL MEDICAL SUMMARY RPT | Continuity of Care Document ---
:1975 Demographics Phone Unavailable Preferred Language New Zealander Marital Status Unknown Scientologist Affiliation Unknown Race Unknown Ethnic Group Unknown Author Organization [place] Address [address] [phone] Phone Care Team Providers Name Role Phone Bettes Unavailable Unavailable Jose Enrique Unavailable Unavailable Jose Enrique Unavailable Unavailable Allergies Encounters Medications date description facility [id number] gabapentin 300 MG Oral Capsule [facility] [id number] Acetaminophen 325 MG / Hydrocodone Arcelia rtrate 5 MG Oral [facility] Tablet [id number] Ketorolac Tromethamine 10 MG Oral Table t [facility] [id number] Acetaminophen 325 MG / Hydrocodone Arcelia rtrate 5 MG Oral [facility] Tablet [id number] Ketorolac Tromethamine 10 MG Oral [facility] Problems date description facility [id number] Pain in right hip [facility] [id number] Persons encountering health services in other specified [facility] circ [id number] Encounter for screening mammogram for m [facility] neoplasm of [id number] Encounter for screening for other suspe cted endocrine [facility] disord [id number] Encounter for screening for other metab olic disorders [facility] [id number] Encounter for screening for lipoid diso rders [facility] Procedures date description facility [id number] [facility] [id number] [facility] [id number] [facility] Results Vital Signs date measurement value source [id number] respiration_rate 16 /min [id number] weight_standard 68.04 lb [id number] weight_metric 30.86 kg 47610722 respiration_rate 16 /min 44697148 height_standard 65 in [id number] height_metric 165.1 cm [id number] heart_rate 57 /min 15832588 BP_systolic 111 mm[Hg] 70104218 BP_diastolic 60 mm[Hg] 42242795 BMI 25.0 kg/m2 13718663 weight_standard 69 lb 50829436 weight_metric 31.3 kg 13787587 temperature_standard 97.2 F 20201220 temperature_metric 36.22 C 20201220 height_standard 65 in [id number] height_metric 165.1 cm 60972238 heart_rate 56 /min 73171812 BP_systolic 118 mm[Hg] 72518986 BP_diastolic 62 mm[Hg] 95317649 BMI 25.3 kg/m2
--- NOTE | 2021-02-10 11:42 | ED Physician Documentation ---
History of Present Illness - Stated complaint Stated Complaint: ABD PX - Chief complaint Chief Complaint: Abd Pain - Additonal information Additional information: 45-year-old female presents the emergency department for evaluation of acute on set periumbilical pain and cramping that began just about 2 hours prior to arrival. Pain is constant nonradiating but causes her to double over in pain. Denies fevers, dysuria. She does report a history of chronic constipation and for this she takes MiraLAX daily. No changes in her bowel regimen or quality of stools. Past surgical history includes hiatal hernia repair, previous appendectomy, and multiple repair of ovarian cysts. Review of Systems Constitutional: reports: Fever Eyes: reports: Reviewed and negative Ears: reports: Reviewed and negative Nose: reports: Reviewed and negative Throat: reports: Reviewed and negative Cardiac: reports: Reviewed and negative Respiratory: reports: Reviewed and negative GI: reports: Abdominal Pain, Nausea, Constipation. 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 : None HEENT: None Psych: None Musculoskeletal: Chronic back pain Derm: None - Past Surgical History Past Surgical History: Yes General: Appendectomy, Other /EMISSIONS REPAIR TECHNICIAN: Endometrial ablation, Tubal ligation - Present Medications Home Medications: Ambulatory Orders Medication Instructions Recorded Confirmed Gabapentin [Neurontin] 900 mg PO TID 01/07/18 02/10/21 Metoprolol Tartrate 25 mg PO BID 01/07/18 02/10/21 Pantoprazole [Protonix] 40 mg PO DAILY 01/07/18 02/10/21 cycloSPORINE [Restasis] 1 drops EACHEYE DAILY 01/07/18 02/10/21 lamoTRIgine [Lamictal] 200 mg PO QPM 01/07/18 02/10/21 traZODone [Desyrel] 50 mg PO QPM 01/07/18 02/10/21 Ondansetron Odt [Zofran] 4 mg TL Q6H PRN #10 tablet 02/10/21 - Allergies Allergies/Adverse Reactions: Allergies Allergy/AdvReac Type Severity Reaction Status Date / Time morphine Allergy Edema Verified 02/10/21 11:13 Sulfa (Sulfonamide Allergy Rash Verified 02/10/21 11:13 Antibiotics) - Social History Does the pt smoke?: No Smoking Status: Never smoker Does the pt drink ETOH?: No Does the pt have substance abuse?: No - Immunizations Immunizations are current?: Yes - POLST Patient has POLST: No PD ED PE EXPANDED - General General: Alert, Anxious, In Pain - Neck Neck: Supple w/out meningeal sx. No: Adenopathy - Cardiac Cardiac: Regular Rate, Radial strong equal, Cap refill < 2 sec. No: Murmur Present - Respiratory Respiratory: Clear to ausultation greg. No: Distress, Labored - Abdomen Abdomen: Normal Bowel sounds, Tender to palpation, Periumbilical (without guarding or rebound. no CVA tenderness. ), Surgical scars. No: Rebound, Guarding - Derm Derm: Normal color, Warm and dry - Extremities Extremities: Normal. No: Deformity, Tenderness - Neuro Neuro: Alert and Oriented X 3, CNII-XII intact - GCS Eye Opening: Spontaneous Motor: Obeys Commands Verbal: Oriented Total: 15 Results - Vitals Vitals: Vital Signs - 24 hr 02/10/21 11:16 Temperature 36.4 C L Heart Rate 60 Respiratory 18 Rate Blood Pressure 137/69 H O2 Saturation 98 Oxygen O2 Source Room air - Labs Labs: Laboratory Tests 02/10/21 02/10/21 02/10/21 11:27 11:27 11:37 WBC 6.1 RBC 4.09 L Hgb 13.2 Hct 40.4 MCV 98.8 MCH 32.3 H MCHC 32.7 RDW 11.7 L Plt Count 334 MPV 9.1 Neut # (Auto) 3.4 Lymph # (Auto) 2.0 Garza # (Auto) 0.4 Eos # (Auto) 0.3 Baso # (Auto) 0.1 Absolute Nucleated RBC 0.00 Nucleated RBC % 0.0 Sodium 136 Potassium 4.3 Chloride 103 Carbon Dioxide 26 Anion Gap 7.0 BUN 14 Creatinine 0.9 Estimated GFR (MDRD) 67 L Glucose 143 H Calcium 9.3 Total Bilirubin 0.4 AST 15 ALT 18 Alkaline Phosphatase 61 Total Protein 7.0 Albumin 4.5 Globulin 2.5 Albumin/Globulin Ratio 1.8 Lipase 29 Urine Color YELLOW Urine Clarity CLEAR Urine pH 5.5 Ur Specific [place] 1.020 Urine Protein NEGATIVE Urine Glucose (UA) NEGATIVE Urine Ketones NEGATIVE Urine Occult Blood NEGATIVE Urine Nitrite NEGATIVE Urine Bilirubin NEGATIVE Urine Urobilinogen 0.2 (NORMAL) Ur Leukocyte Esterase NEGATIVE Ur Microscopic Review NOT INDICATED Urine Culture Comments NOT INDICATED Urine HCG, Qual NEGATIVE - Rads (name of study) CT abd Radiology: Final report received (No CT evidence of acute process. Trace free p elvic fluid is most likely physiologic. Uterus is normal. No suspicious adnexal masses.) PD MEDICAL DECISION MAKING - ED course Complexity details: reviewed results, re-evaluated patient, considered differential, d/w patient ED course: This is a well-appearing 45-year-old female that presents the emergency department for evaluation of periumbilical cramping that began just a few hours prior to arrival. Some nausea but no vomiting. No associated fevers. She reports that she had never had pain this bad before. Screening labs were essentially unremarkable. There was no findings of infection in the urine. CT of the abdomen also did not show any worrisome findings signs of bowel obstruction incarcerated hernia or infection. Patient was given Zofran and fentanyl with marked relief of her symptoms. In reevaluation I am unable to review produce the pain. Labs and CT findings were discussed with the patient. At this time the etiology of her symptoms is not clear though no acute emergent medical condition seems to be present. Pt Does have a history of irritable bowel syndrome and reports that she gets colonoscopies every 5 years. She is scheduled to see her PCP and get her next colonoscopy referral in March. She denies that she is ever had similar symptoms with previous IBS flares. Patient will be discharged with recommendation to follow-up with a primary care doctor. Limited prescription for Zofran was offered. Emergent return precautions were discussed for suddenly severe or d ifferent pain, fevers uncontrolled vomiting black or bloody stools. Departure - Departure Disposition: 01 Home, Self Care Clinical Impression: Abdominal pain Qualifiers: Abdominal location: lower abdomen, unspecified Qualified Code(s): R10.30 - Lower abdominal pain, unspecified Condition: Stable Record reviewed to determine appropriate education?: Yes Instructions: ED Abdominal Pain Cause Unkn Male Ch Follow-Up: THERESA BENAVIDEZ ARNP [Primary Care Provider] - Prescriptions: Ondansetron Odt [Zofran] 4 mg TL Q6H PRN #10 tablet PRN Reason: Nausea / Vomiting Comments: Lizet you are seen in the emergency department today for sudden onset lower abdominal pain and cramping. As we discussed your screening labs were all essentially normal. The CT of your abdomen also did not show any worrisome findings. The cause of your symptoms is not clear though this may be related to your IBS. Is important you continue to follow-up with your primary care provider as already scheduled. I prescribed a limited amount of Zofran to help with nausea at home. I do recommend a clear diet over the next 24 hours and slowly advance as your symptoms improve. You are return to the emergency department if you develop fevers, have suddenly severe or different abdominal pain uncontrolled vomiting or black or bloody stools.
[2021-02-10 11:45] LABS: ALBUMIN 4.5 g/dL (3.2-5.5); ALBUMIN/GLOBULIN RATIO 1.8 (1.0-2.2); BILIRUBIN,TOTAL 0.4 mg/dL (0.2-1.0); CALCIUM 9.3 mg/dL (8.5-10.3); CREATININE 0.9 mg/dL (0.4-1.0); POTASSIUM 4.3 mmol/L (3.5-5.0)
[2021-02-10] MEDS ORDERED: IOVERSOL 320 100 ML VIAL IVP ONE ×2 (11:46→12:15)
[2021-02-10 11:48] LABS: BILIRUBIN,URINE NEGATIVE (NEGATIVE); GLUCOSE, URINE (UA) NEGATIVE (NEGATIVE); KETONES,URINE (UA) NEGATIVE (NEGATIVE); LEUKOCYTE ESTERASE, URINE NEGATIVE (NEGATIVE); NITRITE,URINE NEGATIVE (NEGATIVE); OCCULT BLOOD,URINE NEGATIVE (NEGATIVE); PH,URINE 5.5 PH (5.0-7.5); PROTEIN,URINE NEGATIVE (NEGATIVE); UROBILINOGEN,URINE 0.2 (NORMAL) E.U./dL (NORMAL)
[2021-02-10 11:51] LABS: CLARITY,URINE CLEAR (CLEAR); HCG UR QUAL NEGATIVE
--- NOTE | 2021-02-10 12:30 | CT Report ---
PROCEDURE: Abdomen/Pelvis W INDICATIONS: periumbilical pain, cramping; previous appy CONTRAST: IV CONTRAST: Optiray 320 ml: 100 PO CONTRAST: *NO PO CONTRAST TECHNIQUE: After the administration of IV contrast, 5 mm thick sections acquired from the diaphragms to the symp hysis. 5 mm thick coronal and sagittal reformats were acquired. For radiation dose reduction, the f ollowing was used: automated exposure control, adjustment of mA and/or kV according to patient size. COMPARISON: 01/07/2018 FINDINGS: Image quality: Excellent. ABDOMEN: Lung bases: Lung bases are clear. Heart size is normal. Solid organs: Liver and spleen are normal in size and enhancement. Gallbladder is unremarkable Brandin iary system is non dilated. Pancreas enhances normally. No adrenal nodules. Kidneys demonstrate no rmal size and enhancement, without hydronephrosis. Peritoneum and bowel: Bowel loops demonstrate normal wall thickness and caliber. Mildly increased qu antity of solid colonic stool. Trace fluid in the right posterior pelvis. No visible drainable fluid collections. Nodes and vessels: No retroperitoneal or mesenteric adenopathy by size criteria. Aorta and inferior vena cava are normal in size. Miscellaneous: No ventral hernias. PELVIS: Genitourinary: Bladder wall thickness is normal. The uterus is normal. No suspicious adnexal masses . Miscellaneous: No inguinal hernias or adenopathy. Bones: No suspicious bony lesions. No vertebral body compression fractures. IMPRESSION: 1. No CT evidence of acute process. 2. Trace free pelvic fluid is most likely physiologic. Reviewed by: Elma Love MD on 02/10/2021 12:28 PM PDT Approved by: Elma Love MD on 02/10/2021 12:28 PM PDT Station ID: [id number]
[2021-02-10 12:38] VITALS: BP 123/84
== END 2021-02-10 12:57 | disposition home or self-care (01) ==
LOC: ED 11:09
DX: R10.30 Lower abdominal pain, unspecified (principal); I10 Essential (primary) hypertension
CPT/HCPCS: 36415; 74177; 80053; 81003; 81025; 83690; 85025; 96374; 96375; 99284; Q9967; 81001; 87086

== ENCOUNTER 2021-10-04 19:52 | Emergency (ER) | payer OTHER ==
--- NOTE | 2021-10-04 20:42 | ED Physician Documentation ---
PD HPI CHEST PAIN - Stated complaint Stated Complaint: C+,COUGH,SOA,CP - Additional information Additional information: Patient is 46-year-old female presenting to the emergency department with shortness of breath. Feeling unwell since Saturday, diagnosed with Covid yesterday. Reports asthma exacerbation with frequent use of her inhaler at home. Endorses for upper airway congestion. States chest discomfort, associated with cough. Denies other chronic medical conditions.States fully vaccinated. 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 : None HEENT: None Psych: None Musculoskeletal: Chronic back pain Derm: None - Past Surgical History Past Surgical History: Yes General: Appendectomy, Other /BURN CREW MEMBER: Endometrial ablation, Tubal ligation - Present Medications Home Medications: Ambulatory Orders Medication Instructions Recorded Confirmed Gabapentin [Neurontin] 900 mg PO TID 01/07/18 02/10/21 Metoprolol Tartrate 25 mg PO BID 01/07/18 02/10/21 Pantoprazole [Protonix] 40 mg PO DAILY 01/07/18 02/10/21 cycloSPORINE [Restasis] 1 drops EACHEYE DAILY 01/07/18 02/10/21 lamoTRIgine [Lamictal] 200 mg PO QPM 01/07/18 02/10/21 traZODone [Desyrel] 50 mg PO QPM 01/07/18 02/10/21 Ondansetron Odt [Zofran] 4 mg TL Q6H PRN #10 tablet 02/10/21 Albuterol Sulf [Ventolin Hfa 1 - 2 puffs INH Q4HR PRN #1 inhaler 10/04/21 Inhaler] Benzonatate [Tessalon] 200 mg PO TID PRN #30 cap 10/04/21 predniSONE [Deltasone] 40 mg PO DAILY #5 tablet 10/04/21 - Allergies Allergies/Adverse Reactions: Allergies Allergy/AdvReac Type Severity Reaction Status Date / Time morphine Allergy Edema Verified 10/04/21 20:46 Sulfa (Sulfonamide Allergy Rash Verified 10/04/21 20:46 Antibiotics) - Social History Does the pt smoke?: No Smoking Status: Never smoker Does the pt drink ETOH?: No Does the pt have substance abuse?: No - Immunizations Immunizations are current?: Yes - POLST Patient has POLST: No PD ED PE NORMAL - General General: Alert and oriented X 3 - HEENT HEENT: Atraumatic, PERRL, EOMI - Neck Neck: Supple, no meningeal sign, No bony TTP, No adenopathy - Cardiac Cardiac: RRR, No murmur, No gallop - Respiratory Respiratory: No respiratory distress, Clear bilaterally - Abdomen Abdomen: Normal bowel sounds, Soft - Derm Derm: Normal color - Extremities Extremities: No deformity - Neuro Neuro: Alert and oriented X 3, basket patcher 2-12 intact, No motor deficit, No sensory deficit, Normal speech Results - Vitals Vitals: Vital Signs - 24 hr 10/04/21 10/04/21 10/04/21 20:42 21:16 21:25 Temperature 37.2 C Heart Rate 87 102 H 88 Respiratory 18 18 18 Rate Blood Pressure 134/87 H 140/90 H O2 Saturation 100 100 10/04/21 22:05 Temperature Heart Rate 85 Respiratory 17 Rate Blood Pressure 114/73 O2 Saturation 100 Oxygen O2 Source Room air - EKG (time done) 2129 Rate: Rate (enter#) (83) Rhythm: NSR Cuthbert: Normal Intervals: Normal RI QRS: Normal Ischemia: Normal ST segments. No: Hyperacute T waves, T wave inversion Computer interpretation: Agree with computer PD MEDICAL DECISION MAKING - ED course Complexity details: reviewed results, d/w patient ED course: Patient is 46-year-old female, history of asthma, known history Covid presenting to the emergency department shortness of breath. EKG negative for acute ischemia or dysrhythmia. Chest x-ray nonacute. Given breathing treatment. Reported symptomatic improvement. Will discharge with refill of her albuterol inhaler, short course prednisone and Tessalon for symptomatic management. Encourage careful follow-up with primary care return to the emergency department for new or worsening symptoms. Departure - Departure Disposition: 01 Home, Self Care Clinical Impression: Asthma, COVID Instructions: Asthma Dc Prescriptions: Albuterol Sulf [Ventolin Hfa Inhaler] 1 - 2 puffs INH Q4HR PRN #1 inhaler PRN Reason: Shortness Of Air/Wheezing predniSONE [Deltasone] 40 mg PO DAILY #5 tablet Benzonatate [Tessalon] 200 mg PO TID PRN #30 cap PRN Reason: Cough Comments: Thank you for allowing us to care for you today at [facility]. Your EKG and chest x-ray were very reassuring. I do not see any indications of developing Covid pneumonia. I will send a prescription for some oral steroid to help with your breathing to your preferred pharmacy. Also be writing you for refill of your albuterol inhaler and something to help with your cough. Please follow-up with your primary care doctor soon as possible. If it anytime you have any new or worsening symptoms please not hesitate to return. Discharge Date/Time: 10/04/21 22:32
[2021-10-04] MEDS: predniSONE 20 MG TABLET PO STA (21:11)
[2021-10-04] MEDS: BENZONATATE 100 MG CAPSULE PO STA (21:11)
[2021-10-04] MEDS: IPRATROPIUM/ALBUTEROL 3 ML NEB INH STA (21:13)
--- NOTE | 2021-10-04 22:04 | XRAY Report ---
PROCEDURE: Chest 1 View X-Ray INDICATIONS: chest pain TECHNIQUE: One view of the chest was acquired. COMPARISON: CXR 06/23/20 FINDINGS: Surgical changes and devices: None. Lungs and pleura: No pleural effusions or pneumothorax. Lungs are clear. Mediastinum: Mediastinal contours appear normal. Heart size is normal. Bones and chest wall: No suspicious bony lesions. Overlying soft tissues appear unremarkable. IMPRESSION: No acute pulmonary process. Reviewed by: Brittany Massey MD on 10/04/2021 10:02 PM [facility] Approved by: Brittany Massey MD on 10/04/2021 10:02 PM [facility] Station ID: [id number]
[2021-10-04 22:06] VITALS: BP 114/73
== END 2021-10-04 22:32 | disposition home or self-care (01) ==
LOC: ED 19:52
DX: U07.1 COVID-19 (principal); J45.909 Unspecified asthma, uncomplicated; I10 Essential (primary) hypertension
CPT/HCPCS: 71045; 93005; 94640; 94664; 99282; 99284; A9270; J7512

== ENCOUNTER 2021-10-09 15:36 | Emergency (ER) | payer OTHER ==
[2021-10-09] MEDS ORDERED: guaiFENesin 100 MG/5 ML UDC PO STA ×2 (18:38→18:45)
--- NOTE | 2021-10-09 19:13 | ED Physician Documentation ---
History of Present Illness - Stated complaint Stated Complaint: C+, ASTHMA - Chief complaint Chief Complaint: General - History obtained from History obtained from: Patient - History of Present Illness Timing: How many days ago (5) Pain level max: 4 Pain level now: 3 - Additonal information Additional information: 46-year-old female with asthma presents to the emergency department stating she was diagnosed with Covid approximately 5 days ago. She did receive her 2 Covid vaccinations but not the booster. She is currently on steroids and albuterol. She states when she coughs that she feels like she becomes short of breath. She does have occasional wheezing. No fevers. Feels generally weak and tired. 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 : None HEENT: None Psych: None Musculoskeletal: Chronic back pain Derm: None - Past Surgical History Past Surgical History: Yes General: Appendectomy, Other /ANALYSIS MANAGER: Endometrial ablation, Tubal ligation - Present Medications Home Medications: Ambulatory Orders Medication Instructions Recorded Confirmed Gabapentin [Neurontin] 900 mg PO TID 01/07/18 10/09/21 Metoprolol Tartrate 25 mg PO BID 01/07/18 10/09/21 Pantoprazole [Protonix] 40 mg PO DAILY 01/07/18 10/09/21 cycloSPORINE [Restasis] 1 drops EACHEYE DAILY 01/07/18 10/09/21 traZODone [Desyrel] 25 mg PO QPM 01/07/18 10/09/21 Albuterol Sulf [Ventolin Hfa 1 - 2 puffs INH Q4HR PRN #1 inhaler 10/04/21 10/09/21 Inhaler] Benzonatate [Tessalon] 200 mg PO TID PRN #30 cap 10/04/21 10/09/21 Ipratropium/Albuterol [Duoneb] 3 ml INH TID 10/09/21 10/09/21 Promethazine HCl/Codeine 5 ml PO Q6H PRN #120 ml 10/09/21 [Prometh-Codein 6.25-10 mg/5 ml] lamoTRIgine [Lamictal Xr] 50 mg PO DAILY PM 10/09/21 10/09/21 predniSONE [Deltasone] 10 mg PO [id number] #42 tab 10/09/21 - Allergies Allergies/Adverse Reactions: Allergies Allergy/AdvReac Type Severity Reaction Status Date / Time morphine Allergy Edema Verified 10/09/21 16:12 Sulfa (Sulfonamide Allergy Rash Verified 10/09/21 16:12 Antibiotics) - Social History Does the pt smoke?: No Smoking Status: Never smoker Does the pt drink ETOH?: No Does the pt have substance abuse?: No - Immunizations Immunizations are current?: Yes - POLST Patient has POLST: No PD ED PE NORMAL - Vitals Vital signs reviewed: Yes - General General: Alert and oriented X 3, No acute distress, Well developed/nourished - HEENT HEENT: PERRL - Neck Neck: Supple, no meningeal sign - Cardiac Cardiac: RRR - Respiratory Respiratory: No respiratory distress, Clear bilaterally - Abdomen Abdomen: Soft, Non tender, Non distended - Derm Derm: Warm and dry - Extremities Extremities: No edema - Neuro Neuro: Alert and oriented X 3 - Psych Psych: Normal mood, Normal affect Results - Vitals Vitals: Vital Signs - 24 hr 10/09/21 10/09/21 10/09/21 16:16 18:50 19:43 Temperature 37.1 C Heart Rate 69 85 64 Respiratory 20 20 23 Rate Blood Pressure 147/89 H 116/68 122/76 O2 Saturation 100 99 100 Oxygen O2 Source Room air PD MEDICAL DECISION MAKING - ED course Complexity details: reviewed results, re-evaluated patient, considered differential, d/w patient ED course: Patient is well-appearing, nontoxic. Afebrile. No hypoxia or respiratory distress. It seems that the most bothersome symptom is the continuous coughing which is causing her to have difficulty breathing and difficulty sleeping. We will change her cough medication for home. We will also extend her prednisone. No indication for antibiotics at this time. No indication for repeat chest x- ray. Patient counseled regarding signs and symptoms for which I believe and urgent re-evaluation would be necessary. Patient with good understanding of and agreement to plan and is comfortable going home at this time This document was made in part using voice recognition software. While efforts are made to proofread this document, sound alike and grammatical errors may occur. Departure - Departure Disposition: 01 Home, Self Care Clinical Impression: COVID Asthma Qualifiers: Asthma severity: unspecified severity Asthma persistence: unspecified Asthma complication type: with acute exacerbation Qualified Code(s): J45.901 - Unspecified asthma with (acute) exacerbation Condition: Good Instructions: ED Reactive Airway Disease, ED Viral Syndrome Follow-Up: Tonia White ARNP [Primary Care Provider] - Within 1 week Prescriptions: predniSONE [Deltasone] 10 mg PO [id number] #42 tab Promethazine HCl/Codeine [Prometh-Codein 6.25-10 mg/5 ml] 5 ml PO Q6H PRN #120 ml PRN Reason: Cough Comments: We will prolong your prednisone taper. We will also change your cough medication to help with your coughing and difficulty breathing when you have coughing. Your oxygen levels are normal tonight. Please follow-up with your doctor for further care. Return if you worsen Discharge Date/Time: 10/09/21 19:43
[2021-10-09 19:44] VITALS: BP 122/76
== END 2021-10-09 19:43 | disposition home or self-care (01) ==
LOC: ED 15:36
DX: U07.1 COVID-19 (principal); J45.901 Unspecified asthma with (acute) exacerbation
CPT/HCPCS: 99282; 99283; A9270

== ENCOUNTER 2024-02-20 16:03 | Outpatient (CLI) | payer OTHER ==
--- NOTE | 2024-02-20 19:47 | XRAY Report ---
PROCEDURE: Foot 1-2V LT INDICATIONS: PAIN IN LEFT TOE TECHNIQUE: 3 views of the foot were obtained. COMPARISON: None FINDINGS: Bones: No fractures or dislocations. No suspicious bony lesions. Soft tissues: Unremarkable. No radiopaque foreign body. IMPRESSION: Unremarkable foot radiographs Reviewed by: Roosevelt Borjas MD on 02/20/2024 6:46 PM [facility] Approved by: Roosevelt Borjas MD on 02/20/2024 6:46 PM [facility] Station ID: [id number]
== END 2024-02-20 16:04 | disposition home or self-care (01) ==
LOC: DI 16:03
PROVIDERS: ATTEND Physician Assistant
DX: M79.675 Pain in left toe(s) (principal)